=== PATIENT | male | born 1985 | race Two or more races ===

== ENCOUNTER 2021-09-20 09:37 | Inpatient (IN) | payer BC, MEDICARE ==
[~2021-09-20] VITALS: Ht 172.7 cm; Wt 109.4 kg
[~2021-09-20 09:37] MED LIST: OXYC10TA44 PO
[2021-09-20] MEDS ORDERED: ASPirin 81 mg TAB PO ONE (10:45)
[2021-09-20] MEDS: SODIUM CHLORIDE 0.9% 1,000 ML IVB ONE ×3 (10:45→11:00)
[2021-09-20] MEDS ORDERED: SODIUM CHLORIDE 0.9% 1,000 ML IV ONE ×2 (10:45→14:15)
[2021-09-20] MEDS ORDERED: cefTRIAXone 1GM/50ML D5W 50 ML IV ONE (11:15)
[2021-09-20] MEDS ORDERED: AZITHROMYCIN 500MG/ 250ML 250 ML IV ONE (11:15)
[2021-09-20 12:05] LABS: Basophils # (auto) 0 10 ^3/uL (0-0.2); Eosinophils # (auto) 0 10 ^3/uL (0-0.8); Hematocrit 45.9 % (41.0-53.0); Hemoglobin 15.8 g/dL (13.5-17.5); Lymphocytes # (auto) 0.5 10 ^3/uL (0.4-5.4); Lymphocytes % (auto) 3.7 % (10.0-50.0); Mean Corpuscular Hemoglobin 31.8 pg (28.0-32.0); Mean Corpuscular Hgb Conc. 34.4 g/dL (32.0-36.0); Mean Corpuscular Volume 92.3 fL (80.0-100.0); Monocytes # (auto) 1.1 10 ^3/uL (0-1.3); Monocytes % (auto) 8.7 % (0.0-12.0); Neutrophils # (auto) 11.1 10 ^3/uL (1.6-8.6); Neutrophils % (auto) 87.6 % (37.0-80.0); Nucleated Red Blood Cells % 0.1 %; Red Blood Cells 4.97 10^6/uL (4.5-5.90); Red Cell Distribution Width 14.3 % (11.8-14.3); White Blood Cell 12.7 10^3/uL (4.4-10.8)
[2021-09-20 12:20] LABS: INR 1.04 (0.9-1.15); Partial Thromboplastin Time 35.3 sec (23.6-33.0)
[2021-09-20 12:22] LABS: Albumin 3.6 g/dL (3.4-5.0); Calcium 8.3 mg/dL (8.5-10.1); Magnesium 2.4 mg/dL (1.6-2.6); Potassium 4.2 mmol/L (3.5-5.1)
[2021-09-20 12:24] LABS: Lactic Acid w/Reflex 4.2 mmol/L (0.4-2.0)
[2021-09-20 12:26] LABS: BUN/Creatinine Ratio 13.7; Bilirubin, Total 0.5 mg/dL (0.2-1.0); Total Protein 8.2 g/dL (6.4-8.2)
[2021-09-20] MEDS ORDERED: IOHEXOL 350 MG/ML 100ML IJ ONE (13:56)
[2021-09-20] MEDS ORDERED: KETOROLAC TROMETH 30 MG/ML 1ML VIAL IV ONE (15:00)
[2021-09-20] MEDS ORDERED: NALBUPHINE HCL 10 MG/1ml INJECTION IV ONE ×2 (16:30→19:15)
[2021-09-20] MEDS ORDERED: InsuLIN REG 1unit/0.01ml Soln (100units/ml) SC SCH ×2 (17:00→22:00)
[2021-09-20] MEDS ORDERED: MORPHINE SULFATE INJ 2 MG/ml SYRG IV PRN ×2 (17:00→17:45)
[2021-09-20] MEDS ORDERED: DEXTROSE (50%) 50ML SYRG IV PRN (17:00)
[2021-09-20] MEDS: ACCU-CHEK COMFORT CURVE STRIP VI SCH ×2 (17:00→22:00)
[2021-09-20] MEDS ORDERED: NITROGLYCERIN 0.4 MG SL TAB SL PRN (17:00)
[2021-09-20] MEDS ORDERED: ACETAMINOPHEN 325 MG TAB PO PRN ×2 (17:45)
[2021-09-20] MEDS ORDERED: MORPHINE SULFATE 4 MG/ML SYR/VIAL IV PRN (17:45)
[2021-09-20] MEDS ORDERED: LORazepam 2MG/ML-1ML VIAL IV PRN (17:45)
[2021-09-20] MEDS ORDERED: DOCUSATE SOD 100 MG CAP PO PRN (17:45)
[2021-09-20] MEDS ORDERED: hydrALAZINE HCL 20 MG/ML VL IV PRN (17:45)
[2021-09-20] MEDS ORDERED: ONDANSETRON HCL 4 MG/2 ML VIAL IV PRN (17:45)
[2021-09-20] MEDS ORDERED: HYDROcodone-ACET 5/325MG TAB PO PRN (17:45)
[2021-09-20] MEDS ORDERED: METOPROLOL TARTRATE 1MG/1ML-5ML VIAL IV PRN (18:00)
[2021-09-20] MEDS ORDERED: ALBUTEROL SULF 2.5 MG/0.5ML(0.5%) NEB SOLN NEB ONE (18:00)
[2021-09-20 19:46] VITALS: BP 100/66
[2021-09-20] MEDS: levoFLOXacin 750MG 150 ML IV SCH (20:13)
[2021-09-20 20:25] VITALS: BP 98/62
[2021-09-20 20:43] VITALS: BP 98/62
[2021-09-20] MEDS ORDERED: SODIUM CHLORIDE 0.9% 2,000 ML IV ONE (20:45)
[2021-09-20] MEDS ORDERED: dilTIAZem 25 MG/5 ML VIAL IV ONE (21:30)
[2021-09-20] MEDS ORDERED: ETOMIDATE (2MG/ML) 20ML VIAL IV ONE (21:43)
[2021-09-20] MEDS ORDERED: ROCURONIUM 10MG/ML 10ML VIAL IV ONE (21:43)
[2021-09-20] MEDS ORDERED: PROPOFOL 100 ML IV ONE (21:49)
[2021-09-20] MEDS ORDERED: MIDAZOLAM HCL 5 MG/ML-1ML VIAL ONE (21:56)
[2021-09-20 22:39] LABS: Urine Bacteria NONE SEEN /hpf (None Seen); Urine Blood 1+ /uL (Negative); Urine Specific Gravity 1.032 (1.001-1.035); Urine WBC 3 /hpf (0 - 3)
[2021-09-20] MEDS ORDERED: FUROSEMIDE 40 MG/4 ML VIAL IV ONE (22:45)
[2021-09-20] MEDS: NOREPINEPHRINE 8 MG/250ML KIT 250 ML IV SCH (22:45)
[2021-09-20 22:53] LABS: Amphetamine Screen, Urine NEGATIVE (NEGATIVE); Barbiturate Scree,Urine NEGATIVE (NEGATIVE); Benzodiazephine Screen, Urine NEGATIVE (NEGATIVE); Cannabinoid Screen, Urine NEGATIVE (NEGATIVE); Cocaine Screen, Urine NEGATIVE (NEGATIVE); Opiate Scree,Urine POSITIVE (NEGATIVE); Phencyclidine Screen, Urine NEGATIVE (NEGATIVE)
[2021-09-20] MEDS: PROPOFOL 100 ML IV SCH (23:33)
[2021-09-20] MEDS: MIDAZOLAM DRIP 50 mg/50mL 50 ML IV SCH (23:33)
[2021-09-21] VITALS (11 sets, daily range): BP systolic 74–119; BP diastolic 47–80
[2021-09-21] MEDS ORDERED: fentaNYL CITRATE 100 MCG/2 ML VL IV ONE
[2021-09-21] MEDS: NOREPINEPHRINE 8 MG/250ML KIT 250 ML IV SCH (01:22)
[2021-09-21] MEDS: fentaNYL Drip 2500mCg/250mlNS 250 ML IV SCH (01:22)
[2021-09-21] MEDS: PHENYLEPHRINE IV 250 ML IV SCH ×2 (01:52→08:57)
[2021-09-21] MEDS: VASOPRESSIN 50 UNITS in D5W 5% 247.5 ML IV SCH (02:31)
[2021-09-21] MEDS ORDERED: VASOPRESSIN 20 UNIT/ML ONE (02:33)
[2021-09-21] MEDS ORDERED: HYDROCORTISONE SOD SUCC 100 MG/2ML INJ VIAL IV ONE (03:30)
[2021-09-21] MEDS: ACCU-CHEK COMFORT CURVE STRIP VI SCH ×2 (05:50→11:54)
[2021-09-21 05:52] LABS: Basophils # (auto) 0 10 ^3/uL (0-0.2); Basophils % (auto) 0.6 % (0.0-2.0); Eosinophils # (auto) 0 10 ^3/uL (0-0.8); Eosinophils % (auto) 0.2 % (0.0-7.0); Hematocrit 41.4 % (41.0-53.0); Hemoglobin 14.4 g/dL (13.5-17.5); Lymphocytes # (auto) 0.6 10 ^3/uL (0.4-5.4); Lymphocytes % (auto) 18.7 % (10.0-50.0); Mean Corpuscular Hemoglobin 32.4 pg (28.0-32.0); Mean Corpuscular Hgb Conc. 34.7 g/dL (32.0-36.0); Mean Corpuscular Volume 93.5 fL (80.0-100.0); Monocytes # (auto) 0.2 10 ^3/uL (0-1.3); Monocytes % (auto) 7.3 % (0.0-12.0); Neutrophils # (auto) 2.4 10 ^3/uL (1.6-8.6); Neutrophils % (auto) 73.2 % (37.0-80.0); Nucleated Red Blood Cells % 0.2 %; Red Blood Cells 4.42 10^6/uL (4.5-5.90); Red Cell Distribution Width 14.5 % (11.8-14.3); White Blood Cell 3.3 10^3/uL (4.4-10.8)
[2021-09-21 05:57] LABS: Albumin 2.2 g/dL (3.4-5.0); Anion Gap 11 (5-15); Blood Urea Nitrogen 24 mg/dL (7-18); Calcium 7.3 mg/dL (8.5-10.1); Carbon Dioxide 21 mmol/L (21-32); Chloride 107 mmol/L (98-107); Glucose 157 mg/dL (74-106); Lipase 16 U/L (73-393); Magnesium 1.7 mg/dL (1.6-2.6); Potassium 4.1 mmol/L (3.5-5.1); Sodium 139 mmol/L (136-145); Uric Acid 5.6 mg/dL (3.5-7.2)
[2021-09-21 06:04] LABS: INR 1.24 (0.9-1.15); Partial Thromboplastin Time 42.3 sec (23.6-33.0)
[2021-09-21 06:06] LABS: Alanine Aminotransferase 45 U/L (16-61); Alkaline Phosphatase 53 U/L (45-117); Aspartate Aminotransferase 47 U/L (15-37); BUN/Creatinine Ratio 13.1; Bilirubin, Total 0.7 mg/dL (0.2-1.0); Cholesterol < 50 mg/dL (< 200); Creatine Kinase IFCC 92 U/L (39-308); GFR African American 54 mL/min; GFR Non-African American 45 mL/min; HDL Cholesterol 19 mg/dL (40-59); LDL Cholesterol 9 mg/dL (< 100); Total Protein 5.8 g/dL (6.4-8.2); Triglycerides 132 mg/dL (< 150)
[2021-09-21 06:10] LABS: Thyroid Stimulating Hormone 3.63 uIU/mL (0.358-3.74)
[2021-09-21 06:25] LABS: CRP High Sensitivity > 19.0 mg/dL (< 0.3)
[2021-09-21] MEDS ORDERED: ACETAMINOPHEN 650 mg PER 20.3 mL UD ONE (07:53)
[2021-09-21] MEDS ORDERED: IBUPROFEN 100MG/5ML ORAL SUSP 100 MG/5 ML UD GT ONE (08:00)
[2021-09-21] MEDS: HYDROCORTISONE SOD SUCC 100 MG/2ML INJ VIAL IV SCH ×2 (08:11→22:50)
[2021-09-21] MEDS: FAMOTIDINE (10MG/ML) 2ML VL IV SCH (08:11)
[2021-09-21] MEDS: ENOXAPARIN SOD 40 MG/0.4 ML SYRINGE SC SCH (08:12)
[2021-09-21] MEDS: MIDAZOLAM DRIP 50 mg/50mL 50 ML IV SCH ×3 (08:13→18:09)
[2021-09-21] MEDS: ACETAMINOPHEN 650 mg PER 20.3 mL UD PO PRN ×2 (08:15→14:12)
[2021-09-21] MEDS: NOREPINEPHRINE BITARTRATE 16 MG in SODIUM CHL 0.9% 234 ML IV SCH ×2 (08:54→17:06)
[2021-09-21] MEDS: PROPOFOL 100 ML IV SCH ×2 (08:55→17:05)
[2021-09-21 12:30] LABS: Urine Bacteria NONE SEEN /hpf (None Seen); Urine Blood 3+ /uL (Negative); Urine Mucus FEW (None Seen); Urine Specific Gravity 1.019 (1.001-1.035); Urine WBC 5 /hpf (0 - 3)
[2021-09-21 12:41] LABS: Creatinine, Urine 121 mg/dL (30.0-125.0); Sodium Urine 25 mmol/L (40-220)
[2021-09-21 12:50] LABS: Amphetamine Screen, Urine NEGATIVE (NEGATIVE); Cannabinoid Screen, Urine NEGATIVE (NEGATIVE); Protein, Urine 249.9 mg/dL (0.0-11.9)
[2021-09-21] MEDS: PHENYLEPHRINE INJ 40 MG in SODIUM CHL 0.9% 246 ML IV SCH (12:55)
[2021-09-21 13:01] LABS: Alcohol, Urine < 3.0 mg/dL (0-10); Barbiturate Scree,Urine NEGATIVE (NEGATIVE); Benzodiazephine Screen, Urine POSITIVE (NEGATIVE); Cocaine Screen, Urine NEGATIVE (NEGATIVE); Opiate Scree,Urine NEGATIVE (NEGATIVE); Phencyclidine Screen, Urine NEGATIVE (NEGATIVE)
[2021-09-21] MEDS: SODIUM CHLORIDE 0.9% 1,000 ML IV SCH ×2 (13:57→23:45)
[2021-09-21] MEDS ORDERED: FUROSEMIDE 20 MG/2 ML VIAL IV ONE (16:45)
[2021-09-21] MEDS: levoFLOXacin 750MG 150 ML IV SCH (17:04)
[2021-09-21] MEDS ORDERED: IBUPROFEN 100MG/5ML ORAL SUSP 100 MG/5 ML UD GT PRN (18:15)
[2021-09-21 18:18] LABS: BUN/Creatinine Ratio 18.9; Calcium 7.2 mg/dL (8.5-10.1); Potassium 5.1 mmol/L (3.5-5.1)
[2021-09-22] VITALS (98 sets, daily range): BP systolic 76–138; BP diastolic 35–66
[2021-09-22] MEDS: fentaNYL Drip 2500mCg/250mlNS 250 ML IV SCH ×2 (01:30→17:52)
[2021-09-22] MEDS: VASOPRESSIN 50 UNITS in D5W 5% 247.5 ML IV SCH (02:30)
[2021-09-22] MEDS: PHENYLEPHRINE INJ 40 MG in SODIUM CHL 0.9% 246 ML IV SCH ×2 (02:58→09:51)
[2021-09-22 05:28] LABS: Hematocrit 43.4 % (41.0-53.0); Hemoglobin 14.9 g/dL (13.5-17.5); Mean Corpuscular Hemoglobin 31.9 pg (28.0-32.0); Mean Corpuscular Hgb Conc. 34.2 g/dL (32.0-36.0); Mean Corpuscular Volume 93.2 fL (80.0-100.0); Red Blood Cells 4.66 10^6/uL (4.5-5.90); Red Cell Distribution Width 15.5 % (11.8-14.3); White Blood Cell 8.9 10^3/uL (4.4-10.8)
[2021-09-22 05:31] LABS: Basophils % (manual) 0 (0.0-2.0); Blast Cells 0; Eosinophils % (manual) 0 (0-7); Promyelocytes % 0; Reactive Lymphocytes 0
[2021-09-22 05:42] LABS: BUN/Creatinine Ratio 17.8; Calcium 7.2 mg/dL (8.5-10.1); Phosphorus 3.9 mg/dL (2.5-4.90); Uric Acid 6.8 mg/dL (3.5-7.2)
[2021-09-22 07:21] LABS: Band Neutrophils % (manual) 40; Lymphocytes % (manual) 22 (10.0-50.0); Metamyelocytes % 4; Monocytes % (manual) 4 (0-12); Myelocytes % 2
[2021-09-22] MEDS: PROPOFOL 100 ML IV SCH ×5 (08:47→21:05)
[2021-09-22] MEDS: SODIUM CHLORIDE 0.9% 1,000 ML IV SCH (09:45)
[2021-09-22] MEDS ORDERED: VANCOMYCIN PER PHARMACY 0 MG IV SCH (10:00)
[2021-09-22] MEDS ORDERED: SODIUM BICARBONATE 8.4 % INJ 50ML VIAL IV ONE (10:00)
[2021-09-22] MEDS ORDERED: VANCOMYCIN 1GM/250ML 250 ML IV ONE ×2 (10:30→12:30)
[2021-09-22] MEDS: ENOXAPARIN SOD 40 MG/0.4 ML SYRINGE SC SCH (10:45)
[2021-09-22] MEDS: FAMOTIDINE (10MG/ML) 2ML VL IV SCH (10:45)
[2021-09-22] MEDS: HYDROCORTISONE SOD SUCC 100 MG/2ML INJ VIAL IV SCH ×2 (10:45→22:46)
[2021-09-22] MEDS ORDERED: DIGOXIN (250MCG/ML) 2 ML AMPULE IV ONE (11:15)
[2021-09-22] MEDS: MIDAZOLAM DRIP 50 mg/50mL 50 ML IV SCH ×3 (13:48→21:43)
[2021-09-22] MEDS ORDERED: FUROSEMIDE 20 MG/2 ML VIAL IV ONE (15:30)
[2021-09-22] MEDS ORDERED: FUROSEMIDE 100 MG/10ML VIAL IV ONE (15:45)
[2021-09-22] MEDS: ROCURONIUM 10MG/ML 10ML VIAL IV PRN (16:14)
[2021-09-22] MEDS: FUROSEMIDE 20 MG/2 ML VIAL IV SCH (17:52)
[2021-09-22] MEDS: levoFLOXacin 750MG 150 ML IV SCH (17:52)
[2021-09-22 18:24] LABS: BUN/Creatinine Ratio 17.5; Calcium 6.5 mg/dL (8.5-10.1); Potassium 5.1 mmol/L (3.5-5.1)
[2021-09-23] VITALS (78 sets, daily range): BP systolic 83–108; BP diastolic 42–65
[2021-09-23] MEDS: ROCURONIUM 10MG/ML 10ML VIAL IV PRN (00:16)
[2021-09-23] MEDS: PROPOFOL 100 ML IV SCH ×4 (00:28→20:54)
[2021-09-23] MEDS: ACETAMINOPHEN 650 mg PER 20.3 mL UD PO PRN ×2 (01:18→21:01)
[2021-09-23] MEDS: MIDAZOLAM DRIP 50 mg/50mL 50 ML IV SCH ×7 (02:13→20:54)
[2021-09-23] MEDS: VASOPRESSIN 50 UNITS in D5W 5% 247.5 ML IV SCH (02:30)
[2021-09-23 05:20] LABS: Hematocrit 35.7 % (41.0-53.0); Hemoglobin 12.6 g/dL (13.5-17.5); Mean Corpuscular Hemoglobin 32.4 pg (28.0-32.0); Mean Corpuscular Hgb Conc. 35.2 g/dL (32.0-36.0); Mean Corpuscular Volume 92.2 fL (80.0-100.0); Red Blood Cells 3.87 10^6/uL (4.5-5.90); Red Cell Distribution Width 14.9 % (11.8-14.3); White Blood Cell 14.5 10^3/uL (4.4-10.8)
[2021-09-23 05:26] LABS: Basophils % (manual) 0 (0.0-2.0); Blast Cells 0; Eosinophils % (manual) 0 (0-7); Metamyelocytes % 0; Myelocytes % 0; Promyelocytes % 0; Reactive Lymphocytes 0
[2021-09-23 05:31] LABS: Albumin 1.7 g/dL (3.4-5.0); Calcium 7.2 mg/dL (8.5-10.1); Potassium 4.8 mmol/L (3.5-5.1)
[2021-09-23 05:37] LABS: Total Protein 6.1 g/dL (6.4-8.2)
[2021-09-23] MEDS: fentaNYL Drip 2500mCg/250mlNS 250 ML IV SCH ×2 (05:41→17:22)
[2021-09-23] MEDS: FUROSEMIDE 20 MG/2 ML VIAL IV SCH ×2 (05:42→15:40)
[2021-09-23 08:26] LABS: Band Neutrophils % (manual) 8; Lymphocytes % (manual) 7 (10.0-50.0); Monocytes % (manual) 13 (0-12)
[2021-09-23] MEDS: NOREPINEPHRINE BITARTRATE 16 MG in SODIUM CHL 0.9% 234 ML IV SCH ×2 (08:45→21:48)
[2021-09-23] MEDS ORDERED: MEROPENEM 1GM IVPB 100 ML IV SCH (10:00)
[2021-09-23] MEDS: ALBUMIN 25% 50 ML IV SCH ×2 (10:57→17:19)
[2021-09-23] MEDS: FAMOTIDINE (10MG/ML) 2ML VL IV SCH (10:58)
[2021-09-23] MEDS: HYDROCORTISONE SOD SUCC 100 MG/2ML INJ VIAL IV SCH ×2 (10:59→21:49)
[2021-09-23] MEDS: ENOXAPARIN SOD 40 MG/0.4 ML SYRINGE SC SCH (10:59)
[2021-09-23] MEDS ORDERED: VANCOMYCIN 1,500 MG in D5W 5% 250 ML IV SCH (12:00)
[2021-09-23] MEDS: PHENYLEPHRINE INJ 40 MG in SODIUM CHL 0.9% 246 ML IV SCH (14:30)
[2021-09-23 16:57] LABS: Urine Amorphous Crystal FEW /hpf (None Seen); Urine Bacteria NONE SEEN /hpf (None Seen); Urine Blood 3+ /uL (Negative); Urine Specific Gravity 1.014 (1.001-1.035); Urine WBC 3 /hpf (0 - 3)
[2021-09-23] MEDS ORDERED: levoFLOXacin 750MG 150 ML IV SCH (17:00)
[2021-09-24] VITALS (97 sets, daily range): BP systolic 91–110; BP diastolic 52–70
[2021-09-24] MEDS: MIDAZOLAM DRIP 50 mg/50mL 50 ML IV SCH ×6 (00:29→21:03)
[2021-09-24] MEDS: ALBUMIN 25% 50 ML IV SCH (02:04)
[2021-09-24] MEDS: PROPOFOL 100 ML IV SCH ×5 (02:06→21:02)
[2021-09-24] MEDS: VASOPRESSIN 50 UNITS in D5W 5% 247.5 ML IV SCH (02:30)
[2021-09-24 05:24] LABS: Hematocrit 34.9 % (41.0-53.0); Hemoglobin 11.9 g/dL (13.5-17.5); Mean Corpuscular Hemoglobin 31.9 pg (28.0-32.0); Mean Corpuscular Hgb Conc. 34.1 g/dL (32.0-36.0); Mean Corpuscular Volume 93.5 fL (80.0-100.0); Red Blood Cells 3.73 10^6/uL (4.5-5.90); Red Cell Distribution Width 15.6 % (11.8-14.3); White Blood Cell 20.3 10^3/uL (4.4-10.8)
[2021-09-24 05:28] LABS: Basophils % (manual) 0 (0.0-2.0); Blast Cells 0; Eosinophils % (manual) 0 (0-7); Metamyelocytes % 0; Promyelocytes % 0; Reactive Lymphocytes 0
[2021-09-24 05:41] LABS: Albumin 1.9 g/dL (3.4-5.0); Calcium 7.4 mg/dL (8.5-10.1); Potassium 4.7 mmol/L (3.5-5.1)
[2021-09-24 05:46] LABS: BUN/Creatinine Ratio 18.5; Total Protein 6.6 g/dL (6.4-8.2)
[2021-09-24 06:27] LABS: Band Neutrophils % (manual) 33; Lymphocytes % (manual) 3 (10.0-50.0); Monocytes % (manual) 6 (0-12); Myelocytes % 5
[2021-09-24] MEDS: FUROSEMIDE 20 MG/2 ML VIAL IV SCH ×2 (06:32→18:17)
[2021-09-24] MEDS: fentaNYL Drip 2500mCg/250mlNS 250 ML IV SCH ×3 (06:43→17:30)
[2021-09-24] MEDS: PHENYLEPHRINE INJ 40 MG in SODIUM CHL 0.9% 246 ML IV SCH ×2 (08:00→23:50)
[2021-09-24] MEDS ORDERED: SODIUM CHL 0.9% 1000 ML BAG XX ONE (10:45)
[2021-09-24] MEDS: FAMOTIDINE (10MG/ML) 2ML VL IV SCH (13:12)
[2021-09-24] MEDS: HYDROCORTISONE SOD SUCC 100 MG/2ML INJ VIAL IV SCH ×2 (13:12→22:09)
[2021-09-24] MEDS: ENOXAPARIN SOD 40 MG/0.4 ML SYRINGE SC SCH (13:13)
[2021-09-24] MEDS ORDERED: VANCOMYCIN 1GM/250ML 250 ML IV ONE (14:00)
[2021-09-24] MEDS ORDERED: fentaNYL Drip 2500mCg/250mlNS 250 ML IV SCH (15:30)
[2021-09-24] MEDS ORDERED: Jevity 1.2 Cal/Fiber 1 Liter GT SCH (16:00)
[2021-09-24] MEDS: ROCURONIUM 10MG/ML 10ML VIAL IV PRN (22:26)
[2021-09-25] VITALS (90 sets, daily range): BP systolic 88–116; BP diastolic 54–67
[2021-09-25] MEDS: MIDAZOLAM DRIP 50 mg/50mL 50 ML IV SCH ×4 (00:52→18:15)
[2021-09-25] MEDS: PROPOFOL 100 ML IV SCH ×4 (00:53→18:15)
[2021-09-25] MEDS: fentaNYL Drip 2500mCg/250mlNS 250 ML IV SCH ×3 (01:57→18:15)
[2021-09-25] MEDS: VASOPRESSIN 50 UNITS in D5W 5% 247.5 ML IV SCH (02:30)
[2021-09-25 05:23] LABS: Hematocrit 34.1 % (41.0-53.0); Hemoglobin 11.5 g/dL (13.5-17.5); Mean Corpuscular Hemoglobin 31.4 pg (28.0-32.0); Mean Corpuscular Hgb Conc. 33.7 g/dL (32.0-36.0); Mean Corpuscular Volume 93.2 fL (80.0-100.0); Red Blood Cells 3.66 10^6/uL (4.5-5.90); Red Cell Distribution Width 15.5 % (11.8-14.3); White Blood Cell 28.9 10^3/uL (4.4-10.8)
[2021-09-25 05:34] LABS: Basophils % (manual) 0 (0.0-2.0); Blast Cells 0; Eosinophils % (manual) 0 (0-7); Myelocytes % 0; Promyelocytes % 0; Reactive Lymphocytes 0
[2021-09-25 05:41] LABS: Albumin 1.8 g/dL (3.4-5.0); Calcium 7.5 mg/dL (8.5-10.1); Potassium 5.4 mmol/L (3.5-5.1)
[2021-09-25 05:46] LABS: Total Protein 6.6 g/dL (6.4-8.2)
[2021-09-25] MEDS: FUROSEMIDE 20 MG/2 ML VIAL IV SCH ×2 (06:00→18:10)
[2021-09-25 06:18] LABS: INR 0.98 (0.9-1.15)
[2021-09-25 06:45] LABS: Band Neutrophils % (manual) 2; Lymphocytes % (manual) 4 (10.0-50.0); Metamyelocytes % 2; Monocytes % (manual) 6 (0-12)
[2021-09-25] MEDS ORDERED: SODIUM CHL 0.9% 1000 ML BAG XX ONE (07:00)
[2021-09-25 07:07] LABS: RPR Non Reactive (Non Reactive)
[2021-09-25] MEDS: NOREPINEPHRINE BITARTRATE 16 MG in SODIUM CHL 0.9% 234 ML IV SCH (10:30)
[2021-09-25] MEDS: FAMOTIDINE (10MG/ML) 2ML VL IV SCH (10:36)
[2021-09-25] MEDS: ENOXAPARIN SOD 40 MG/0.4 ML SYRINGE SC SCH (10:36)
[2021-09-25] MEDS: HYDROCORTISONE SOD SUCC 100 MG/2ML INJ VIAL IV SCH ×2 (10:37→21:57)
[2021-09-25 13:06] LABS: Hepatitis A Ab IgM Negative; Hepatitis B Core IgM Negative; Hepatitis C Antibody Negative (Negative)
[2021-09-25] MEDS: PHENYLEPHRINE INJ 40 MG in SODIUM CHL 0.9% 246 ML IV SCH (15:47)
[2021-09-25] MEDS ORDERED: Nepro With Carb Steady 1 Liter Bottle GT SCH ×2 (16:00)
[2021-09-26] VITALS (95 sets, daily range): BP systolic 88–127; BP diastolic 49–76
[2021-09-26] MEDS: PROPOFOL 100 ML IV SCH ×5 (01:30→18:51)
[2021-09-26] MEDS: MIDAZOLAM DRIP 50 mg/50mL 50 ML IV SCH ×5 (01:30→21:20)
[2021-09-26] MEDS: VASOPRESSIN 50 UNITS in D5W 5% 247.5 ML IV SCH (02:30)
[2021-09-26] MEDS: FUROSEMIDE 20 MG/2 ML VIAL IV SCH (05:37)
[2021-09-26] MEDS ORDERED: SODIUM CHL 0.9% 1000 ML BAG XX ONE (07:00)
[2021-09-26] MEDS: NOREPINEPHRINE BITARTRATE 16 MG in SODIUM CHL 0.9% 234 ML IV SCH ×2 (08:45→18:49)
[2021-09-26 08:47] LABS: Hematocrit 35.3 % (41.0-53.0); Hemoglobin 12.1 g/dL (13.5-17.5); Mean Corpuscular Hemoglobin 31.3 pg (28.0-32.0); Mean Corpuscular Hgb Conc. 34.4 g/dL (32.0-36.0); Mean Corpuscular Volume 91.1 fL (80.0-100.0); Red Blood Cells 3.87 10^6/uL (4.5-5.90); Red Cell Distribution Width 15.8 % (11.8-14.3)
[2021-09-26 08:55] LABS: Albumin 1.8 g/dL (3.4-5.0); Calcium 8.2 mg/dL (8.5-10.1)
[2021-09-26] MEDS: ENOXAPARIN SOD 40 MG/0.4 ML SYRINGE SC SCH (08:55)
[2021-09-26] MEDS: FAMOTIDINE (10MG/ML) 2ML VL IV SCH (08:55)
[2021-09-26 08:59] LABS: BUN/Creatinine Ratio 20.2; Bilirubin, Total 1.1 mg/dL (0.2-1.0); Total Protein 7.7 g/dL (6.4-8.2)
[2021-09-26] MEDS: PHENYLEPHRINE INJ 40 MG in SODIUM CHL 0.9% 246 ML IV SCH (09:10)
[2021-09-26 09:39] LABS: White Blood Cell 40.7 10^3/uL (4.4-10.8)
[2021-09-26 09:40] LABS: Basophils % (manual) 0 (0.0-2.0); Blast Cells 0; Eosinophils % (manual) 0 (0-7); Myelocytes % 0; Promyelocytes % 0; Reactive Lymphocytes 0
[2021-09-26 10:12] LABS: Band Neutrophils % (manual) 66; Lymphocytes % (manual) 5 (10.0-50.0); Metamyelocytes % 7; Monocytes % (manual) 13 (0-12)
[2021-09-26] MEDS: FUROSEMIDE 100 MG/10ML VIAL IV SCH (11:13)
[2021-09-26] MEDS: fentaNYL Drip 2500mCg/250mlNS 250 ML IV SCH ×2 (11:18→18:50)
[2021-09-26] MEDS: HYDROCORTISONE SOD SUCC 100 MG/2ML INJ VIAL IV SCH ×2 (11:20→21:18)
[2021-09-26 11:22] LABS: Basophils # (auto) 0.2 10 ^3/uL (0-0.2); Hematocrit 34.1 % (41.0-53.0)
[2021-09-26 11:24] LABS: Basophils % (auto) 0.4 % (0.0-2.0); Eosinophils # (auto) 0.1 10 ^3/uL (0-0.8); Eosinophils % (auto) 0.2 % (0.0-7.0); Hemoglobin 11.7 g/dL (13.5-17.5); Lymphocytes # (auto) 0.9 10 ^3/uL (0.4-5.4); Lymphocytes % (auto) 2.4 % (10.0-50.0); Mean Corpuscular Hemoglobin 31.4 pg (28.0-32.0); Mean Corpuscular Hgb Conc. 34.4 g/dL (32.0-36.0); Mean Corpuscular Volume 91.5 fL (80.0-100.0); Monocytes # (auto) 1.6 10 ^3/uL (0-1.3); Monocytes % (auto) 4.2 % (0.0-12.0); Neutrophils # (auto) 34.5 10 ^3/uL (1.6-8.6); Neutrophils % (auto) 92.8 % (37.0-80.0); Red Blood Cells 3.73 10^6/uL (4.5-5.90); Red Cell Distribution Width 15.6 % (11.8-14.3)
[2021-09-26 11:29] LABS: White Blood Cell 37.2 10^3/uL (4.4-10.8)
[2021-09-26] MEDS: ACETAMINOPHEN 650 mg PER 20.3 mL UD PO PRN (14:46)
[2021-09-26] MEDS ORDERED: VANCOMYCIN 1GM/250ML 250 ML IV ONE (15:00)
[2021-09-27] VITALS (104 sets, daily range): BP systolic 79–113; BP diastolic 45–65
[2021-09-27] MEDS: MIDAZOLAM DRIP 50 mg/50mL 50 ML IV SCH ×6 (00:42→22:49)
[2021-09-27] MEDS: PHENYLEPHRINE INJ 40 MG in SODIUM CHL 0.9% 246 ML IV SCH ×2 (01:38→17:40)
[2021-09-27] MEDS: ROCURONIUM 10MG/ML 10ML VIAL IV PRN ×2 (01:56→18:34)
[2021-09-27] MEDS: PROPOFOL 100 ML IV SCH ×7 (01:56→22:13)
[2021-09-27] MEDS: VASOPRESSIN 50 UNITS in D5W 5% 247.5 ML IV SCH (02:30)
[2021-09-27] MEDS: fentaNYL Drip 2500mCg/250mlNS 250 ML IV SCH ×3 (03:00→17:43)
[2021-09-27 05:08] LABS: Mean Corpuscular Hemoglobin 31.8 pg (28.0-32.0); Red Cell Distribution Width 16.1 % (11.8-14.3)
[2021-09-27 05:10] LABS: Hematocrit 33.1 % (41.0-53.0); Hemoglobin 11.3 g/dL (13.5-17.5); Mean Corpuscular Volume 93.6 fL (80.0-100.0); Red Blood Cells 3.54 10^6/uL (4.5-5.90)
[2021-09-27 05:15] LABS: White Blood Cell 35.7 10^3/uL (4.4-10.8)
[2021-09-27 05:17] LABS: Basophils % (manual) 0 (0.0-2.0); Blast Cells 0; Eosinophils % (manual) 0 (0-7); Promyelocytes % 0
[2021-09-27 05:34] LABS: Albumin 1.6 g/dL (3.4-5.0); Calcium 7.4 mg/dL (8.5-10.1)
[2021-09-27 05:38] LABS: BUN/Creatinine Ratio 22.2; Bilirubin, Total 0.8 mg/dL (0.2-1.0); Total Protein 7.1 g/dL (6.4-8.2)
[2021-09-27 05:46] LABS: Potassium 5.7 mmol/L (3.5-5.1)
[2021-09-27 06:22] LABS: Band Neutrophils % (manual) 3; Lymphocytes % (manual) 4 (10.0-50.0); Metamyelocytes % 1; Monocytes % (manual) 4 (0-12); Myelocytes % 2; Reactive Lymphocytes 6
[2021-09-27] MEDS ORDERED: SODIUM ZIRCONIUM CYCL 10 GM PAK PO ONE (09:15)
[2021-09-27] MEDS: FAMOTIDINE (10MG/ML) 2ML VL IV SCH (10:29)
[2021-09-27] MEDS: HYDROCORTISONE SOD SUCC 100 MG/2ML INJ VIAL IV SCH ×2 (10:30→21:35)
[2021-09-27] MEDS: FUROSEMIDE 100 MG/10ML VIAL IV SCH (10:30)
[2021-09-27] MEDS: ENOXAPARIN SOD 40 MG/0.4 ML SYRINGE SC SCH (10:31)
[2021-09-27] MEDS ORDERED: DOPamine 1600MCG/ML D5W 250 ML IV SCH (11:00)
[2021-09-27] MEDS ORDERED: BUMETANIDE INJECTION 12.5 MG in GIVE UN-DILUTED 0 ML IV SCH (11:00)
[2021-09-27] MEDS: ALBUMIN 25% 100 ML IV SCH ×2 (12:15→18:10)
[2021-09-27] MEDS: PANTOPRAZOLE 40 MG/10 ML VIAL INJ IV SCH (12:15)
[2021-09-27] MEDS: SODIUM BICARBONATE 50ML VIAL 100 ML in SOD CHL 0.45% 1,000 ML IV SCH (12:32)
[2021-09-27] MEDS: SODIUM ZIRCONIUM CYCL 10 GM PAK PO SCH ×2 (14:27→21:35)
[2021-09-28] VITALS (96 sets, daily range): BP systolic 83–138; BP diastolic 44–82
[2021-09-28] MEDS: SODIUM BICARBONATE 50ML VIAL 100 ML in SOD CHL 0.45% 1,000 ML IV SCH (01:45)
[2021-09-28] MEDS: PROPOFOL 100 ML IV SCH ×5 (01:45→21:25)
[2021-09-28] MEDS: VASOPRESSIN 50 UNITS in D5W 5% 247.5 ML IV SCH (02:30)
[2021-09-28] MEDS: ALBUMIN 25% 100 ML IV SCH (02:34)
[2021-09-28] MEDS: fentaNYL Drip 2500mCg/250mlNS 250 ML IV SCH ×3 (02:36→16:29)
[2021-09-28] MEDS: SODIUM ZIRCONIUM CYCL 10 GM PAK PO SCH ×3 (05:01→20:23)
[2021-09-28 05:19] LABS: Hematocrit 30.3 % (41.0-53.0); Hemoglobin 10.3 g/dL (13.5-17.5); Mean Corpuscular Hemoglobin 31.6 pg (28.0-32.0); Mean Corpuscular Hgb Conc. 33.8 g/dL (32.0-36.0); Mean Corpuscular Volume 93.4 fL (80.0-100.0); Red Blood Cells 3.24 10^6/uL (4.5-5.90)
[2021-09-28 05:21] LABS: White Blood Cell 34.7 10^3/uL (4.4-10.8)
[2021-09-28 05:22] LABS: Basophils % (manual) 0 (0.0-2.0); Blast Cells 0; Eosinophils % (manual) 0 (0-7); Monocytes % (manual) 0 (0-12); Promyelocytes % 0; Reactive Lymphocytes 0
[2021-09-28 06:17] LABS: Band Neutrophils % (manual) 5; Lymphocytes % (manual) 5 (10.0-50.0); Metamyelocytes % 1; Myelocytes % 1
[2021-09-28] MEDS: MIDAZOLAM DRIP 50 mg/50mL 50 ML IV SCH ×4 (06:27→23:16)
[2021-09-28 07:10] LABS: Albumin 2.4 g/dL (3.4-5.0); Calcium 6.5 mg/dL (8.5-10.1)
[2021-09-28 07:14] LABS: BUN/Creatinine Ratio 24.7; Total Protein 7.3 g/dL (6.4-8.2)
[2021-09-28] MEDS ORDERED: EPINEPHrine HCL 1 MG/1 ML AMP ONE (07:23)
[2021-09-28] MEDS ORDERED: GLYCOPYRROLATE 0.2 MG/ML 1ML VIAL ONE (07:23)
[2021-09-28] MEDS ORDERED: LIDOCAINE 2%HCL (LOCAL ANESTH.) INJ 20ML MDV ONE (07:23)
[2021-09-28] MEDS ORDERED: SODIUM CHLORIDE LOCK 20 ML ONE (07:23)
[2021-09-28] MEDS ORDERED: LIDOCAINE HCL 2% TOP JELLY 5ML TOP ONE (07:24)
[2021-09-28 07:29] LABS: Potassium 6.7 mmol/L (3.5-5.1)
[2021-09-28] MEDS ORDERED: SODIUM BICARBONATE 8.4% INJ 50ML SYRINGE ONE (07:49)
[2021-09-28] MEDS ORDERED: SODIUM BICARBONATE 8.4 % INJ 50ML VIAL IV ONE ×2 (07:49→11:15)
[2021-09-28 08:02] LABS: Phosphorus 12.1 mg/dL (2.5-4.90)
[2021-09-28] MEDS: ROCURONIUM 10MG/ML 10ML VIAL IV PRN (08:05)
[2021-09-28] MEDS ORDERED: DEXTROSE 50% SYRINGE 50 ML IV ONE (08:11)
[2021-09-28] MEDS ORDERED: CALCIUM GLUC 1,000mg/50ml-NS 50 ML IV ONE ×3 (08:12→23:45)
[2021-09-28] MEDS ORDERED: SODIUM CHL 0.9% 1000 ML BAG XX ONE (08:30)
[2021-09-28] MEDS: NOREPINEPHRINE BITARTRATE 16 MG in SODIUM CHL 0.9% 234 ML IV SCH ×2 (08:45→14:11)
[2021-09-28] MEDS: ATRACURIUM BESYLATE 1,000 MG in D5W 5% 150 ML IV SCH (09:30)
[2021-09-28] MEDS: FAMOTIDINE (10MG/ML) 2ML VL IV SCH (10:00)
[2021-09-28] MEDS: PANTOPRAZOLE 40 MG/10 ML VIAL INJ IV SCH (11:07)
[2021-09-28] MEDS: HYDROCORTISONE SOD SUCC 100 MG/2ML INJ VIAL IV SCH ×2 (11:07→20:22)
[2021-09-28] MEDS: PHENYLEPHRINE INJ 40 MG in SODIUM CHL 0.9% 246 ML IV SCH (11:10)
[2021-09-28] MEDS ORDERED: InsuLIN REG 1unit/0.01ml Soln (100units/ml) IV ONE ×2 (11:15→23:45)
[2021-09-28] MEDS ORDERED: DEXTROSE (50%) 50ML SYRG IV ONE ×2 (11:15→23:45)
[2021-09-28] MEDS: ALBUMIN 25% 100 ML IV PRN (12:07)
[2021-09-28] MEDS ORDERED: PHENYLEPHRINE IV 0 ML IV ONE (12:50)
[2021-09-28] MEDS ORDERED: VANCOMYCIN 500 MG in D5W 5% 100 ML IV ONE (16:00)
[2021-09-28] MEDS ORDERED: EPOETIN ALFA-EPBX 10,000 UNIT/1ML VIAL SC ONE (21:00)
[2021-09-28 23:11] LABS: Albumin 3.2 g/dL (3.4-5.0); Calcium 7.1 mg/dL (8.5-10.1)
[2021-09-28 23:13] LABS: BUN/Creatinine Ratio 23.2
[2021-09-28 23:16] LABS: Bilirubin, Total 1.2 mg/dL (0.2-1.0); Total Protein 7.5 g/dL (6.4-8.2)
[2021-09-28 23:23] LABS: Potassium 5.6 mmol/L (3.5-5.1)
[2021-09-28] MEDS ORDERED: ALBUTEROL SULF 2.5 MG/0.5ML(0.5%) NEB SOLN NEB ONE (23:45)
[2021-09-29] VITALS (105 sets, daily range): BP systolic 94–138; BP diastolic 57–74
[2021-09-29] MEDS ORDERED: ALBUTEROL SULF 2.5 MG/0.5ML(0.5%) NEB SOLN NEB ONE
[2021-09-29] MEDS: MIDAZOLAM DRIP 50 mg/50mL 50 ML IV SCH ×4 (03:03→14:11)
[2021-09-29] MEDS: SODIUM ZIRCONIUM CYCL 10 GM PAK PO SCH ×3 (04:45→22:00)
[2021-09-29] MEDS: PROPOFOL 100 ML IV SCH ×3 (05:14→14:10)
[2021-09-29] MEDS: fentaNYL Drip 2500mCg/250mlNS 250 ML IV SCH (08:06)
[2021-09-29] MEDS: ENOXAPARIN SOD 30 MG/0.3 ML SYRINGE SC SCH (08:08)
[2021-09-29] MEDS: HYDROCORTISONE SOD SUCC 100 MG/2ML INJ VIAL IV SCH ×2 (08:08→23:04)
[2021-09-29] MEDS: PANTOPRAZOLE 40 MG/10 ML VIAL INJ IV SCH (08:08)
[2021-09-29] MEDS: ATRACURIUM BESYLATE 1,000 MG in D5W 5% 150 ML IV SCH (09:00)
[2021-09-29 09:04] LABS: Hemoglobin 9.5 g/dL (13.5-17.5); Red Cell Distribution Width 15.7 % (11.8-14.3)
[2021-09-29 09:06] LABS: Hematocrit 28.5 % (41.0-53.0); Mean Corpuscular Hemoglobin 30.7 pg (28.0-32.0); Mean Corpuscular Hgb Conc. 33.3 g/dL (32.0-36.0); Mean Corpuscular Volume 92.2 fL (80.0-100.0); Red Blood Cells 3.09 10^6/uL (4.5-5.90)
[2021-09-29 09:15] LABS: BUN/Creatinine Ratio 26.2; Calcium 7.2 mg/dL (8.5-10.1); Potassium 5.4 mmol/L (3.5-5.1)
[2021-09-29 09:57] LABS: White Blood Cell 34.4 10^3/uL (4.4-10.8)
[2021-09-29 10:00] LABS: Basophils % (manual) 0 (0.0-2.0); Blast Cells 0; Eosinophils % (manual) 0 (0-7); Lymphocytes % (manual) 0 (10.0-50.0); Promyelocytes % 0; Reactive Lymphocytes 0
[2021-09-29] MEDS: FAMOTIDINE (10MG/ML) 2ML VL IV SCH (10:00)
[2021-09-29 10:36] LABS: Band Neutrophils % (manual) 2; Metamyelocytes % 2; Monocytes % (manual) 6 (0-12); Myelocytes % 2
[2021-09-29] MEDS: PHENYLEPHRINE INJ 40 MG in SODIUM CHL 0.9% 246 ML IV SCH ×2 (12:06→20:17)
[2021-09-29] MEDS: VASOPRESSIN 50 UNITS in D5W 5% 247.5 ML IV SCH ×2 (12:06→23:04)
[2021-09-29 12:08] LABS: Hepatitis A Ab IgM Negative; Hepatitis B Core IgM Negative; Hepatitis C Antibody Negative (Negative)
[2021-09-29] MEDS: CALCIUM ACETATE 667 MG CAP NG SCH ×2 (14:10→22:00)
[2021-09-29 16:24] LABS: BUN/Creatinine Ratio 27.7; Calcium 7.1 mg/dL (8.5-10.1)
[2021-09-29 16:58] LABS: Potassium 5.9 mmol/L (3.5-5.1)
[2021-09-29] MEDS ORDERED: InsuLIN REG 1unit/0.01ml Soln (100units/ml) IV ONE (18:30)
[2021-09-29] MEDS ORDERED: FUROSEMIDE 100 MG/10ML VIAL IV ONE (18:30)
[2021-09-29] MEDS ORDERED: DEXTROSE (50%) 50ML SYRG IV ONE (18:30)
[2021-09-29] MEDS ORDERED: SODIUM BICARBONATE 8.4 % INJ 50ML VIAL IV ONE (18:30)
[2021-09-29] MEDS ORDERED: CALCIUM GLUC 1,000mg/50ml-NS 50 ML IV ONE (18:30)
[2021-09-30] VITALS (95 sets, daily range): BP systolic 95–143; BP diastolic 49–79
[2021-09-30] MEDS: PROPOFOL 100 ML IV SCH ×4 (00:19→21:19)
[2021-09-30] MEDS: MIDAZOLAM DRIP 50 mg/50mL 50 ML IV SCH ×5 (03:20→23:29)
[2021-09-30] MEDS: fentaNYL Drip 2500mCg/250mlNS 250 ML IV SCH ×3 (03:21→17:02)
[2021-09-30 04:58] LABS: Mean Corpuscular Hemoglobin 31.5 pg (28.0-32.0); Mean Corpuscular Hgb Conc. 34.2 g/dL (32.0-36.0)
[2021-09-30 05:01] LABS: Hemoglobin 9.2 g/dL (13.5-17.5); Red Blood Cells 2.93 10^6/uL (4.5-5.90); Red Cell Distribution Width 15.5 % (11.8-14.3)
[2021-09-30 05:15] LABS: Albumin 2.8 g/dL (3.4-5.0); BUN/Creatinine Ratio 28.1; Calcium 7.1 mg/dL (8.5-10.1); Potassium 5.5 mmol/L (3.5-5.1)
[2021-09-30 05:16] LABS: White Blood Cell 36.3 10^3/uL (4.4-10.8)
[2021-09-30 05:18] LABS: Basophils % (manual) 0 (0.0-2.0); Blast Cells 0; Eosinophils % (manual) 0 (0-7); Metamyelocytes % 0; Promyelocytes % 0; Reactive Lymphocytes 0
[2021-09-30 05:20] LABS: Bilirubin, Direct 0.7 mg/dL (0-0.2); Bilirubin, Total 1.1 mg/dL (0.2-1.0); Total Protein 7.2 g/dL (6.4-8.2)
[2021-09-30] MEDS ORDERED: SODIUM BICARBONATE 8.4 % INJ 50ML VIAL IV ONE (06:00)
[2021-09-30] MEDS ORDERED: FUROSEMIDE 100 MG/10ML VIAL IV ONE (06:00)
[2021-09-30] MEDS ORDERED: InsuLIN REG 1unit/0.01ml Soln (100units/ml) IV ONE (06:00)
[2021-09-30] MEDS ORDERED: DEXTROSE (50%) 50ML SYRG IV ONE (06:00)
[2021-09-30] MEDS: CALCIUM ACETATE 667 MG CAP NG SCH ×3 (06:00→22:00)
[2021-09-30] MEDS ORDERED: CALCIUM GLUC 1,000mg/50ml-NS 50 ML IV ONE (06:00)
[2021-09-30] MEDS: SODIUM ZIRCONIUM CYCL 10 GM PAK PO SCH ×3 (06:00→22:00)
[2021-09-30] MEDS ORDERED: SODIUM CHL 0.9% 1000 ML BAG XX ONE (07:00)
[2021-09-30 07:57] LABS: Band Neutrophils % (manual) 4; Lymphocytes % (manual) 1 (10.0-50.0); Monocytes % (manual) 8 (0-12); Myelocytes % 1
[2021-09-30] MEDS: ATRACURIUM BESYLATE 1,000 MG in D5W 5% 150 ML IV SCH (08:49)
[2021-09-30] MEDS: FAMOTIDINE (10MG/ML) 2ML VL IV SCH (10:00)
[2021-09-30] MEDS: HYDROCORTISONE SOD SUCC 100 MG/2ML INJ VIAL IV SCH ×2 (10:01→22:03)
[2021-09-30] MEDS: PANTOPRAZOLE 40 MG/10 ML VIAL INJ IV SCH (10:01)
[2021-09-30] MEDS: ENOXAPARIN SOD 30 MG/0.3 ML SYRINGE SC SCH (10:01)
[2021-09-30] MEDS ORDERED: VANCOMYCIN 500 MG in D5W 5% 100 ML IV ONE (16:00)
[2021-09-30] MEDS: NOREPINEPHRINE BITARTRATE 16 MG in SODIUM CHL 0.9% 234 ML IV SCH (16:01)
[2021-09-30] MEDS ORDERED: EPOETIN ALFA-EPBX 10,000 UNIT/1ML VIAL SC ONE (21:00)
[2021-10-01] VITALS (101 sets, daily range): BP systolic 85–127; BP diastolic 43–74
[2021-10-01] MEDS: PROPOFOL 100 ML IV SCH ×8 (01:01→22:29)
[2021-10-01] MEDS: MIDAZOLAM DRIP 50 mg/50mL 50 ML IV SCH ×6 (02:57→20:42)
[2021-10-01] MEDS: fentaNYL Drip 2500mCg/250mlNS 250 ML IV SCH ×3 (02:59→18:20)
[2021-10-01] MEDS: CALCIUM ACETATE 667 MG CAP NG SCH ×3 (06:00→22:00)
[2021-10-01] MEDS: SODIUM ZIRCONIUM CYCL 10 GM PAK PO SCH ×3 (06:00→22:00)
[2021-10-01] MEDS ORDERED: SODIUM CHL 0.9% 1000 ML BAG XX ONE (07:00)
[2021-10-01] MEDS: PHENYLEPHRINE INJ 40 MG in SODIUM CHL 0.9% 246 ML IV SCH ×4 (08:20→23:14)
[2021-10-01] MEDS: VASOPRESSIN 50 UNITS in D5W 5% 247.5 ML IV SCH ×2 (08:20→16:44)
[2021-10-01] MEDS: ALBUMIN 25% 100 ML IV PRN ×3 (08:28→10:47)
[2021-10-01] MEDS: ATRACURIUM BESYLATE 1,000 MG in D5W 5% 150 ML IV SCH (08:32)
[2021-10-01 08:53] LABS: Hematocrit 25.4 % (41.0-53.0); Hemoglobin 8.4 g/dL (13.5-17.5); Mean Corpuscular Hemoglobin 31.3 pg (28.0-32.0); Mean Corpuscular Hgb Conc. 33.1 g/dL (32.0-36.0); Mean Corpuscular Volume 94.6 fL (80.0-100.0); Red Blood Cells 2.69 10^6/uL (4.5-5.90); Red Cell Distribution Width 15.9 % (11.8-14.3)
[2021-10-01 08:57] LABS: White Blood Cell 44.3 10^3/uL (4.4-10.8)
[2021-10-01 09:08] LABS: Albumin 3.2 g/dL (3.4-5.0); Calcium 7.2 mg/dL (8.5-10.1); Magnesium 3.6 mg/dL (1.6-2.6); Potassium 5.5 mmol/L (3.5-5.1)
[2021-10-01 09:12] LABS: Basophils % (manual) 0 (0.0-2.0); Blast Cells 0; Eosinophils % (manual) 0 (0-7); Metamyelocytes % 0; Myelocytes % 0; Promyelocytes % 0; Reactive Lymphocytes 0
[2021-10-01 09:13] LABS: BUN/Creatinine Ratio 27.4; Total Protein 7.9 g/dL (6.4-8.2)
[2021-10-01] MEDS: PANTOPRAZOLE 40 MG/10 ML VIAL INJ IV SCH (09:48)
[2021-10-01] MEDS: HYDROCORTISONE SOD SUCC 100 MG/2ML INJ VIAL IV SCH ×2 (09:48→22:06)
[2021-10-01] MEDS: ENOXAPARIN SOD 30 MG/0.3 ML SYRINGE SC SCH (09:49)
[2021-10-01] MEDS: FAMOTIDINE (10MG/ML) 2ML VL IV SCH (10:00)
[2021-10-01] MEDS: NOREPINEPHRINE BITARTRATE 16 MG in SODIUM CHL 0.9% 234 ML IV SCH ×2 (10:49→18:51)
[2021-10-01 11:31] LABS: Band Neutrophils % (manual) 2; Lymphocytes % (manual) 2 (10.0-50.0); Monocytes % (manual) 3 (0-12)
[2021-10-01] MEDS: ACETAMINOPHEN 650 mg PER 20.3 mL UD PO PRN (13:58)
[2021-10-01] MEDS ORDERED: CEFTAROLINE 300 MG in SODIUM CHL 0.9% 250 ML IV STA (15:53)
[2021-10-01] MEDS ORDERED: EPOETIN ALFA-EPBX 10,000 UNIT/1ML VIAL SC ONE (21:00)
[2021-10-01] MEDS: EPINEPHrine HCL 250 ML IV SCH (23:13)
[2021-10-02] VITALS (14 sets, daily range): BP systolic 58–115; BP diastolic 36–63
[2021-10-02] MEDS: ATRACURIUM BESYLATE 1,000 MG in D5W 5% 150 ML IV SCH (01:00)
[2021-10-02] MEDS: PROPOFOL 100 ML IV SCH (01:06)
[2021-10-02] MEDS: EPINEPHrine HCL 250 ML IV SCH (02:12)
[2021-10-02] MEDS: fentaNYL Drip 2500mCg/250mlNS 250 ML IV SCH (02:13)
[2021-10-02] MEDS ORDERED: CEFTAROLINE 300 MG in SODIUM CHL 0.9% 250 ML IV SCH (05:30)
[2021-10-02] MEDS ORDERED: SODIUM BICARBONATE 8.4% INJ 50ML SYRINGE IV ONE (06:07)
[2021-10-02] MEDS ORDERED: ATROPINE SULF 1 MG/10ml SYR IV ONE (06:07)
[2021-10-02] MEDS ORDERED: EPINEPHrine HCL 1 MG/10 ML SYRG IV ONE (06:07)
== END 2021-10-02 06:08 | disposition home or self-care (01) | DRG 853 ==
LOC: EDBD 09:37 → ER 09:37 → OVERFLOW 16:48 → ICU CENTRL 09-21 23:48
PROVIDERS: ADMIT Hospitalist; ATTEND Internal Medicine
PROC: 5A09357 Assistance with Respiratory Ventilation, Less than 24 Consecutive Hours, Continuous Positive Airway Pressure (ICD-10-PCS; 2021-09-20)
PROC: 06HY33Z Insertion of Infusion Device into Lower Vein, Percutaneous Approach (ICD-10-PCS; 2021-09-20)
PROC: 5A1955Z Respiratory Ventilation, Greater than 96 Consecutive Hours (ICD-10-PCS; principal; 2021-09-21)
PROC: 0BH17EZ Insertion of Endotracheal Airway into Trachea, Via Natural or Artificial Opening (ICD-10-PCS; 2021-09-21)
PROC: 5A1D70Z Performance of Urinary Filtration, Intermittent, Less than 6 Hours Per Day (ICD-10-PCS; 2021-09-24)
PROC: 02HV33Z Insertion of Infusion Device into Superior Vena Cava, Percutaneous Approach (ICD-10-PCS; 2021-09-24)
PROC: B548ZZA Ultrasonography of Superior Vena Cava, Guidance (ICD-10-PCS; 2021-09-24)
PROC: 5A1D70Z Performance of Urinary Filtration, Intermittent, Less than 6 Hours Per Day (ICD-10-PCS; 2021-09-25)
PROC: 5A1D70Z Performance of Urinary Filtration, Intermittent, Less than 6 Hours Per Day (ICD-10-PCS; 2021-09-26)
PROC: 0WCQ8ZZ Extirpation of Matter from Respiratory Tract, Via Natural or Artificial Opening Endoscopic (ICD-10-PCS; 2021-09-28)
PROC: 5A1D70Z Performance of Urinary Filtration, Intermittent, Less than 6 Hours Per Day (ICD-10-PCS; 2021-09-28)
PROC: 05HY33Z Insertion of Infusion Device into Upper Vein, Percutaneous Approach (ICD-10-PCS; 2021-09-28)
PROC: B54MZZA Ultrasonography of Right Upper Extremity Veins, Guidance (ICD-10-PCS; 2021-09-28)
PROC: 5A1D70Z Performance of Urinary Filtration, Intermittent, Less than 6 Hours Per Day (ICD-10-PCS; 2021-09-30)
PROC: 5A1D70Z Performance of Urinary Filtration, Intermittent, Less than 6 Hours Per Day (ICD-10-PCS; 2021-10-01)
DX: A41.02 Sepsis due to Methicillin resistant Staphylococcus aureus (principal); R65.21 Severe sepsis with septic shock; J96.01 Acute respiratory failure with hypoxia; J15.212 Pneumonia due to Methicillin resistant Staphylococcus aureus; I50.23 Acute on chronic systolic (congestive) heart failure; N18.6 End stage renal disease; N17.0 Acute kidney failure with tubular necrosis; G93.41 Metabolic encephalopathy; I46.9 Cardiac arrest, cause unspecified; E87.4 Mixed disorder of acid-base balance; F11.20 Opioid dependence, uncomplicated; I42.9 Cardiomyopathy, unspecified; N13.2 Hydronephrosis with renal and ureteral calculous obstruction; Z20.822 Contact with and (suspected) exposure to COVID-19; N18.2 Chronic kidney disease, stage 2 (mild); G89.4 Chronic pain syndrome; E66.01 Morbid (severe) obesity due to excess calories; N50.812 Left testicular pain; E87.5 Hyperkalemia; E88.09 Other disorders of plasma-protein metabolism, not elsewhere classified; N14.1 Nephropathy induced by other drugs, medicaments and biological substances; Z90.49 Acquired absence of other specified parts of digestive tract; Z68.32 Body mass index [BMI] 32.0-32.9, adult; Z95.2 Presence of prosthetic heart valve
CPT/HCPCS: 36415; 36600; 71045; 71275; 74018; 74176; 76700; 76705; 76775; 80048; 80053; 80061; 80069; 80074; 80076; 80202; 80307; 81001; 82550; 82570; 82728; 82805; 82962; 83036; 83605; 83615; 83690; 83735; 83880; 84100; 84132; 84156; 84300; 84443; 84484; 84550; 85007; 85025; 85027; 85379; 85610; 85652; 85730; 86141; 86160; 86592; 86703; 86850; 86900; 86901; 87040; 87070; 87077; 87081; 87086; 87147; 87186; 87205; 87804; 90935; 93005; 93306; 93970; 94002; 94003; 94640; 94660; 96361; 96365; 96368; 99291; C9113; G0378; J0171; J0696; J0712; J1642; J1815; J1885; J1956; J2185; J2250; J2704; J3490; J7060; P9047